=== PATIENT | male | born 1995 | race Caucasian/White ===

== ENCOUNTER 2017-03-17 23:16 | Emergency (ER) | payer OTHER ==
[~2017-03-17] VITALS: Ht 185.4 cm; Wt 128.8 kg
[2017-03-17] MEDS ORDERED: CYCLOBENZAPRINE 10 MG TABLET ONE (23:51)
[2017-03-17] MEDS ORDERED: KETOROLAC 30 MG/1 ML ONE (23:51)
[2017-03-18] MEDS ORDERED: KETOROLAC 30 MG/1 ML IM ONE
[2017-03-18] MEDS ORDERED: CYCLOBENZAPRINE 10 MG TABLET PO ONE
[2017-03-18] MEDS ORDERED: IBUP-1222 PO (00:03)
[2017-03-18 00:58] LABS: ASPARTATE AMINO TRANSFERASE 19 U/L (15-37); BLOOD UREA NITROGEN 13 mg/dL (7-18)
[2017-03-18 01:06] LABS: IS PT STATUS REG ER OR PRE ER? YES
[2017-03-18] MEDS ORDERED: POTASSIUM CHLORIDE 20 MEQ TAB.ER.PRT PO ONE (02:00)
[2017-03-18 02:04] VITALS: BP 149/93
[2017-03-18] MEDS ORDERED: POTASSIUM CHLORIDE 20 MEQ TAB.ER.PRT ONE (02:08)
== END 2017-03-18 02:06 | disposition home or self-care (01) ==
LOC: ED 23:59
DX: R07.2 Precordial pain (principal); E11.65 Type 2 diabetes mellitus with hyperglycemia; I10 Essential (primary) hypertension; E66.9 Obesity, unspecified; F12.10 Cannabis abuse, uncomplicated
CPT/HCPCS: 36415; 71020; 80053; 84484; 85025; 93005; 96372; 99285; J1885